=== PATIENT | female | born 1995 | race Caucasian/White ===

== ENCOUNTER 2019-12-11 01:49 | Emergency (ER) | payer MEDICAID ==
[~2019-12-11] VITALS: Ht 170.2 cm; Wt 64.9 kg
[2019-12-11 01:56] VITALS: Ht 170.2 cm; Wt 64.9 kg
[2019-12-11 03:58] VITALS: BP 113/72
== END 2019-12-11 03:58 | disposition home or self-care (01) ==
LOC: ED 01:49
DX: J45.909 Unspecified asthma, uncomplicated (principal); K05.10 Chronic gingivitis, plaque induced; K04.7 Periapical abscess without sinus
CPT/HCPCS: Q0092